=== PATIENT | female | born 1990 | race Two or more races ===

== ENCOUNTER 2023-02-16 21:09 | Emergency (ER) | payer MEDICAID, OTHER ==
[~2023-02-16] VITALS: Ht 165.1 cm; Wt 94.0 kg
[2023-02-16 22:58] VITALS: BP 104/68; PULSE 92; RESP 16; TEMP 98.2; O2SAT 100
[2023-02-16] MEDS ORDERED: CEPH500C PO (23:09)
[2023-02-16] MEDS ORDERED: TRIA0.02 TOP (23:09)
[2023-02-16] MEDS ORDERED: DexAMETHasone SOD PHOS 10MG/1ML VIAL INJ IM ONE (23:15)
== END 2023-02-16 23:17 | disposition home or self-care (01) ==
LOC: ER 21:09
DX: S80.862A Insect bite (nonvenomous), left lower leg, initial encounter (principal); S80.861A Insect bite (nonvenomous), right lower leg, initial encounter; F17.210 Nicotine dependence, cigarettes, uncomplicated; Z90.49 Acquired absence of other specified parts of digestive tract; Z79.899 Other long term (current) drug therapy; Z88.0 Allergy status to penicillin; Z88.8 Allergy status to other drugs, medicaments and biological substances; W57.XXXA Bitten or stung by nonvenomous insect and other nonvenomous arthropods, initial encounter; Y93.89 Activity, other specified; Y92.89 Other specified places as the place of occurrence of the external cause; Y99.8 Other external cause status
CPT/HCPCS: 96372; 99283; J1100